=== PATIENT | female | born 1985 | race Caucasian/White ===

== ENCOUNTER 2020-09-08 16:26 | Emergency (ER) | payer OTHER, SELFPAY ==
[2020-09-08 16:38] VITALS: BP 117/75; PULSE 61; RESP 20; TEMP 36.7; O2SAT 100
--- NOTE | 2020-09-08 16:47 | ED.GENADULT ---
HPI - General Adult General Chief complaint: Ear Stated complaint: Ear Infection Time Seen by Provider: 09/08/20 16:48 Source: patient Mode of arrival: ambulatory Limitations: no limitations History of Present Illness HPI narrative: 35-year-old female patient presents to the [facility] with complaints of right ear pain that started today. Patient states that her ear started feeling kind of funny for the past week though. Patient states she has had some runny nose that has been also dry recently. Patient denies any fevers, body aches or chills. Patient denies any coughing, chest pain or shortness of breath. Patient states she had tried taking some Zyrtec as well as some [id number] Flonase for the symptoms. Related Data Home Medications Medication Instructions Recorded Confirmed escitalopram oxalate [Lexapro] 20 mg PO DAILY 06/21/19 09/08/20 alprazolam 0.125 mg PO DAILY PRN 09/08/20 09/08/20 Allergies Allergy/AdvReac Type Severity Reaction Status Date / Time Sulfa (Sulfonamide Allergy Unknown RASH Verified 07/23/19 10:58 Antibiotics) Review of Systems Review of Systems: Narrative: CONSTITUTIONAL: Denies fever, chills, or sweats. EYES: Denies visual changes, redness, or discharge. ENT: Denies rhinorrhea, congestion, sore throat, positive right otalgia. CARDIOVASCULAR: Denies chest pain, palpitations, or edema. RESPIRATORY: Denies cough or dyspnea. GASTROINTESTINAL: Denies abdominal pain, nausea, vomiting, or diarrhea. GENITOURINARY: Denies dysuria or hematuria. SKIN: Denies rash or itching. MUSCULOSKELETAL: Denies back pain, joint pain, or myalgia. NEUROLOGIC: Denies headache, numbness, or weakness. PSYCHIATRIC: Denies anxiety or depression. 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 There is no relevant family history pertinent to the presenting complaint. Exam Narrative: Exam Narrative: GENERAL: Well-appearing, well-nourished, and in no acute distress. HEAD: Normocephalic, atraumatic. EYES: PERRLA and EOMI. ENT: Nares clear but do appear dry, no rhinorrhea or epistaxis. Mucous membranes dry. Posterior pharynx no erythema, tonsillar edema, exudates or lesions present. The right TM does have some erythema with some fluid behind it. NECK: Supple. No lymphadenopathy CHEST: Clear to auscultation. No respiratory distress. HEART: Regular rate and rhythm. No murmur heard. Normal peripheral pulses. ABDOMEN: Soft, nontender, nondistended, normal active bowel sounds. EXTREMITIES: Normal range of motion. No edema. SKIN: Warm, dry, no rash. NEURO: No focal deficits. Alert and oriented x3. Course Vital Signs Vital signs: Vital Signs Temperature 36.7 C 09/08/20 16:38 Pulse Rate 61 09/08/20 16:38 Respiratory Rate 20 09/08/20 16:38 Blood Pressure 117/75 09/08/20 16:38 Pulse Oximetry 100 09/08/20 16:38 Temperature 36.7 C 09/08/20 16:51 Pulse Rate 61 09/08/20 16:51 Respiratory Rate 20 09/08/20 16:51 Blood Pressure 117/75 09/08/20 16:51 Pulse Oximetry 100 09/08/20 16:51 Vital signs reviewed Medical Decision Making Differential Diagnosis Differential Diagnosis: Differential diagnosis: Otitis media, otitis externa, perforated TM, infection of the outer ear, foreign body or cerumen impaction, ruptured TM, acute mastoiditis, ligament otitis externa, dehydration, pneumonia, sepsis, dental or intraoral infection, TMJ dysfunction Discussed with patient it does appear that she may have the start of an ear infection to the right ear. D
[2020-09-08 16:51] VITALS: BP 117/75; PULSE 61; RESP 20; TEMP 36.7; O2SAT 100
== END 2020-09-08 17:00 | disposition home or self-care (01) ==
PROVIDERS: Emergency Provider Nurse Practitioner Family; PCP Family Medicine
DX: H66.91 Otitis media, unspecified, right ear (principal); F41.9 Anxiety disorder, unspecified; F32.9 Major depressive disorder, single episode, unspecified
CPT/HCPCS: 99213; G0463

== ENCOUNTER 2020-12-23 12:05 | Emergency (ER) | payer OTHER, SELFPAY | END 2020-12-23 16:47 | disposition home or self-care (01) | LOC: EXPBETH 16:47 | PROVIDERS: Emergency Provider Nurse Practitioner Family; PCP Family Medicine | DX: H69.91 Unspecified Eustachian tube disorder, right ear (principal); H66.91 Otitis media, unspecified, right ear | CPT/HCPCS: 99213; G0463 ==

== ENCOUNTER 2021-01-27 09:24 | Emergency (ER) | payer OTHER, SELFPAY ==
--- NOTE | ~2021-01-27 | XR_ITS ---
XR foot LT min 3V 01/27/2021 09:52 INDICATION: Left foot pain PROCEDURE: 4 views left foot COMPARISON: No prior studies for comparison. FINDINGS: Fracture, dislocation or subluxation is not identified. The soft tissues appear within norm al limits. No foreign bodies are identified. IMPRESSION: 1: NO ACUTE BONE OR JOINT ABNORMALITY IDENTIFIED. Reviewed, dictated and finalized at location A.
[2021-01-27 09:36] VITALS: BP 109/75; PULSE 62; RESP 16; TEMP 37.1; O2SAT 100
--- NOTE | 2021-01-27 10:02 | ED.LOWEXIN ---
HPI - Extremity Injury (Lower) General Chief Complaint: Extremity Injury, Lower Stated Complaint: Pain in Left Foot Time Seen by Provider: 01/27/21 09:26 Source: patient Mode of arrival: ambulatory Limitations: no limitations History of Present Illness HPI Narrative: 35-year-old female presents to [facility] with complaints of pain to her left foot with ambulation for the past 4 to 5 days. Patient denies injury but reports that she wore flat sandals to an event a few days ago and pain started afterwards. Patient has been taking [id number] Aleve with minimal relief. Patient denies swelling, erythema, bruising, numbness or tingling. Patient reports that she is scheduled to see a wharf worker on Tuesday. Onset (ago): day(s) (5) Injury: Left: foot Relieving factors: NSAID Other symptoms: none Treatments prior to arrival: NSAIDS Related Data Home Medications Medication Instructions Recorded Confirmed alprazolam See Rx Instructions .ROUTE .COMPLEX 01/27/21 01/27/21 cyclobenzaprine 10 mg PO DAILY 01/27/21 01/27/21 escitalopram oxalate 20 mg PO DAILY 01/27/21 01/27/21 Allergies Allergy/AdvReac Type Severity Reaction Status Date / Time Sulfa (Sulfonamide Allergy Rash Verified 01/27/21 10:02 Antibiotics) Review of Systems Constitutional: Constitutional: Denies chills, Denies fatigue, Denies fever(s) and Denies weakness Cardiovascular: Cardiovascular: Denies chest pain, Denies rapid heart rate, Denies radiating jaw, neck or arm pain and Denies slow heart rate Respiratory: Respiratory: Denies chest congestion, Denies cough, Denies dyspnea and Denies wheezing Gastrointestinal: Gastrointestinal: Denies abdominal pain, Denies diarrhea, Denies nausea and Denies vomiting Musculoskeletal: Musculoskeletal: Denies joint swelling Comments: left foot pain Integumentary/Breasts: Skin/Breast: Denies pruritus and Denies rash [facility] Past Medical History Medical History (Updated 01/27/21 @ 10:20 by Niya Jefferson APRN) Right arm fracture Social History Social History (Updated 01/27/21 @ 10:15 by Niya Jefferson APRN) Smoking status: Never smoker Comments At time of signature, I agree with nursing past medical, surgical, social and family history. There is no relevant family history pertinent to the presenting complaint. Exam Const: General: healthy appearing and no acute distress Orientation/consciousness: patient oriented x3 Resp: Effort & Inspection: normal respiratory effort, not labored and not tachypneic Auscultation: clear to auscultation bilaterally Cardio: Rate: regular rate, not bradycardic and not tachycardic Rhythm: regular rhythm and regular rhythm Skin: General skin exam: normal color, no jaundice and no pallor Rashes: no rashes Wounds: no wounds Neuro: General: patient oriented x3, moves all extremities, no meningeal signs and no focal motor deficits Extrem: General: normal to inspection and no pedal edema Other: There is no swelling, erythema or pain to left foot upon palpation. Pulses are within normal limits. Course Vital Signs Vital signs: Vital Signs Temperature 37.1 C 01/27/21 09:36 Pulse Rate 62 01/27/21 09:36 Respiratory Rate 16 01/27/21 09:36 Blood Pressure 109/75 01/27/21 09:36 Pulse Oximetry 100 01/27/21 09:36 Temperature 37.1 C 01/27/21 09:36 Pulse Rate 62 01/27/21 09:36 Respiratory Rate 16 01/27/21 09:36 Blood Pressure 109/75 01/27/21 09:36 Pulse Oximetry 100 01/27/21 09:36 MDM - Extremity Injury (Lower) MDM Narrative Medical decision making narrative: Herminio wrap applied to left foot per windows laptop technician. Patient agrees to keep scheduled appt with wharf worker. patient agrees to take Meloxicam as prescribed. Patient agrees to proceed to the emergency room if symptoms worsen. Differential Diagnosis Differential diagnosis: Likely other (fracture, plantas fascitis, heel spur ) Critical Care Time Critical Care Time Critical Care Time: No
== END 2021-01-27 10:25 | disposition home or self-care (01) ==
PROVIDERS: Emergency Provider Nurse Practitioner Family; PCP Family Medicine
DX: M79.672 Pain in left foot (principal); F41.9 Anxiety disorder, unspecified; F32.9 Major depressive disorder, single episode, unspecified
CPT/HCPCS: 73630; 99213; G0463

== ENCOUNTER 2021-03-04 10:38 | Emergency (ER) | payer OTHER, SELFPAY ==
[2021-03-04 10:45] VITALS: BP 109/59; PULSE 90; RESP 18; TEMP 36.9; O2SAT 99
[2021-03-04 10:55] VITALS: BP 109/59; PULSE 90; RESP 18; TEMP 36.9; O2SAT 99
--- NOTE | 2021-03-04 11:11 | ED.GENADULT ---
HPI - General Adult General Chief complaint: Upper Respiratory Infection Stated complaint: Sore Throat, congestion Time Seen by Provider: 03/04/21 10:56 Source: patient and RN notes reviewed Mode of arrival: ambulatory Limitations: no limitations History of Present Illness HPI narrative: 35-year-old female presents with complaints of upper respiratory infection, some facial congestion, facial pressure, ear pressure, and intermittent headache (not the worst of her life) for the past 2 days. ?Eva reports increasing symptoms over the past 24 hours with fatigue, sore throat, and congestion. Ibuprofen, Tylenol, Sudafed, Flonase, Uma, and Benadryl at night without relief. ?No facial swelling. Intermittent cough without chest congestion. ?Nasal congestion and rhinorrhea. Sore throat. ?Pain is bilateral. ?Hurts to swallow. No high fevers, drooling, neck or throat swelling. No voice change. ?No nausea, vomiting, or abdominal pain. Tolerating liquids well. ?Denies chills, dyspnea, difficulty swallowing, jaw pain, foreign body sensation, and rash. ?No chest pain or shortness of breath. The patient reports she has not been diagnosed with COVID-19. The patient reports she is not waiting for the results of a COVID-19 lab test. The patient reports she does not have weakness or myalgia. The patient reports he does not have a new or worsening cough. The patient reports he does not have any loss of taste or smell and diarrhea. Denies recent traveling. Denies concerns for COVID-19 or exposures. At this time, the patient is not suspected of having COVID-19. ? ? Some parts of this dictation were generated by voice recognition software and may contain typographical and/or grammatical inaccuracies. Related Data Home Medications Medication Instructions Recorded Confirmed escitalopram oxalate [Lexapro] 20 mg PO DAILY 06/21/19 03/04/21 alprazolam 0.125 mg PO DAILY PRN 09/08/20 03/04/21 lisdexamfetamine [Vyvanse] 20 mg PO DAILY 03/04/21 03/04/21 Allergies Allergy/AdvReac Type Severity Reaction Status Date / Time Sulfa (Sulfonamide Allergy Unknown RASH Verified 03/04/21 10:52 Antibiotics) Review of Systems Review of Systems: Narrative: CONSTITUTIONAL: Denies fever, chills, sweats. Complains of fatigue, body aches. EYES: Denies visual changes, redness, discharge. ENT: Complains of rhinorrhea, congestion, facial congestion and pressure, sore throat. Denies otalgia. CARDIOVASCULAR: Denies chest pain, palpitations, edema. RESPIRATORY: Denies dyspnea, wheezing. Complaints of cough. GASTROINTESTINAL: Denies abdominal pain, nausea, vomiting, diarrhea. GENITOURINARY: Denies dysuria, hematuria, abnormal discharge SKIN: Denies rash or itching. MUSCULOSKELETAL: Denies acute back pain, joint pain, or myalgia. NEUROLOGIC: Denies numbness or focal weakness. Complains of intermittent STRATTON. PSYCHIATRIC: Denies anxiety or depression. All other systems reviewed & are unremarkable except as noted in HPI and below. 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 Fractures Right arm Surgical History Surgical History History of orthopedic surgery Fracture right arm Family History Family History (Updated 03/04/21 @ 11:13 by TAM Ramirez) Father Hypertension Obese Mother Alive and well Social History Social History (Updated 03/04/21 @ 11:14 by TAM Ramirez) Smoking status: Never smoker Tobacco type: cigarettes Second hand tobacco smoke exposure: No Alcohol intake: current Substance use: never Substance use type: does not use Living arrangements: with family Occupation/Education: unemployed Gender identity (if verbalized by the patient): Female Sexual Orientation (if Rocio
== END 2021-03-04 11:33 | disposition home or self-care (01) ==
PROVIDERS: Emergency Provider Nurse Practitioner Family
DX: J01.90 Acute sinusitis, unspecified (principal); J02.9 Acute pharyngitis, unspecified; F41.9 Anxiety disorder, unspecified; F32.9 Major depressive disorder, single episode, unspecified; Z90.710 Acquired absence of both cervix and uterus
CPT/HCPCS: 87081; 87880; 99213; G0463

== ENCOUNTER 2021-03-13 18:48 | Emergency (ER) | payer OTHER, SELFPAY ==
[2021-03-13 18:50] VITALS: BP 112/73; PULSE 74; RESP 18; TEMP 37.1; O2SAT 98
--- NOTE | 2021-03-13 19:02 | ED.URI ---
HPI - URI/Sore Throat General Chief Complaint: Upper Respiratory Infection Stated Complaint: Possible sinus infection Time Seen by Provider: 03/13/21 19:01 History of Present Illness HPI Narrative: 35-year-old female presents with concern for continued sinus congestion, pressure, pain, drainage. Reports she was seen here 9 days ago and given a steroid pack and cough medicine. Reports symptoms have not improved, have worsened with sinus pain, ear pressure and pain, thick sinus drainage, general malaise. She reports she finished the steroid pack and has been taking [id number] Sudafed no relief. She denies fever, body aches, chills. Reports occasional cough MD elicited complaint: nasal congestion Related Data Home Medications Medication Instructions Recorded Confirmed escitalopram oxalate [Lexapro] 20 mg PO DAILY 06/21/19 03/13/21 alprazolam 0.125 mg PO DAILY PRN 09/08/20 03/13/21 lisdexamfetamine [Vyvanse] 20 mg PO DAILY 03/04/21 03/13/21 Allergies Allergy/AdvReac Type Severity Reaction Status Date / Time Sulfa (Sulfonamide Allergy Unknown RASH Verified 03/13/21 19:03 Antibiotics) Review of Systems Review of Systems: CONSTITUTIONAL: Denies malaise, chills, sweats, or fever. EYES: Denies visual changes, redness, or discharge. ENT: Reports rhinorrhea, congestion, sinus pain, otalgia. Denies sore throat. CARDIOVASCULAR: Denies chest pain, palpitations, or edema. RESPIRATORY: Reports cough. Denies dyspnea. GASTROINTESTINAL: Denies abdominal pain, nausea, vomiting, diarrhea SKIN: Denies rash or itching. MUSCULOSKELETAL: Denies myalgia. NEUROLOGIC: Denies headache. 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 Fractures Right arm Surgical History Surgical History History of orthopedic surgery Fracture right arm Family History Family History (Updated 03/04/21 @ 11:13 by TAM Ramirez) Father Hypertension Obese Mother Alive and well Social History Social History (Updated 07/21/21 @ 11:14 by HARDEEP Ramirez Smoking status: Never smoker Tobacco type: cigarettes Second hand tobacco smoke exposure: No Alcohol intake: current Substance use: never Substance use type: does not use Gender identity (if verbalized by the patient): Female Exam Narrative: GENERAL: Well-appearing, well-nourished, and in no acute distress. HEAD: Normocephalic EYES: PERRLA, conjunctivae clear ENT: Nares clear, turbinates edematous and erythematous, sinus tenderness. Mucous membranes moist. TM pearly connell with dull light reflex bilaterally; no tragal tenderness. Oropharynx not erythematous without lesions. Tonsils not enlarged and without exudate, no drooling, no hoarseness, no trismus, uvula midline. NECK: Supple. No lymphadenopathy CHEST: Clear to auscultation, breath sounds equal. No wheezing, rhonchi, rales, or stridor. No respiratory distress, speaks in full sentences. HEART: Regular rate and rhythm. No murmur heard. SKIN: Warm, dry, no rash. NEURO: Alert and oriented x3. PSYCH: Normal mood and affect Course Vital Signs Vital signs: Vital Signs Temperature 98.8 F 03/13/21 18:50 Pulse Rate 74 03/13/21 18:50 Respiratory Rate 18 03/13/21 18:50 Blood Pressure 112/73 03/13/21 18:50 Pulse Oximetry 98 03/13/21 18:50 Temperature 98.8 F 03/13/21 18:50 Pulse Rate 74 03/13/21 18:50 Respiratory Rate 18 03/13/21 18:50 Blood Pressure 112/73 03/13/21 18:50 Pulse Oximetry 98 03/13/21 18:50 MDM - URI/Sore Throat MDM Narrative Medical decision making narrative: Differential diagnosis considered: Galvan virus, strep pharyngitis, allergic rhinitis, upper respiratory tract infection, sinusitis, rhinosinusitis, nasopharyngitis. viral
== END 2021-03-13 19:15 | disposition home or self-care (01) ==
PROVIDERS: Emergency Provider Nurse Practitioner
DX: J01.90 Acute sinusitis, unspecified (principal); F41.9 Anxiety disorder, unspecified; F32.9 Major depressive disorder, single episode, unspecified
CPT/HCPCS: 99213; G0463

== ENCOUNTER 2021-07-06 09:02 | Emergency (ER) | payer OTHER, SELFPAY ==
--- NOTE | 2021-07-06 09:07 | ED.URI ---
HPI - URI/Sore Throat General Chief Complaint: Upper Respiratory Infection Stated Complaint: Flu Time Seen by Provider: 07/06/21 09:07 Source: patient and RN notes reviewed History of Present Illness HPI Narrative: Patient is a 36-year-old female who presents the urgent care with complaints of body aches, persistent fevers and chest heaviness. Patient states her symptoms started last Tuesday and she has been taking ibuprofen and Tylenol. 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 Patient typically has a Covid test every Tuesday but missed her test at work considering she was sick. Patient denies of any cough, nausea, vomiting. No other acute complaints. No acute distress noted. Patient read the plan of care. Some parts of this dictation were generated by voice recognition software and may contain typographical and/or grammatical inaccuracies. Related Data Home Medications Medication Instructions Recorded Confirmed alprazolam 0.25 mg PO TID PRN 01/27/21 07/06/21 escitalopram oxalate 20 mg PO DAILY 01/27/21 07/06/21 lisdexamfetamine [Vyvanse] 30 mg PO DAILY 07/06/21 07/06/21 Allergies Allergy/AdvReac Type Severity Reaction Status Date / Time Sulfa (Sulfonamide Allergy Rash Verified 01/27/21 10:02 Antibiotics) Review of Systems Review of Systems: CONSTITUTIONAL: Reports a fever and body aches EYES: Denies visual changes, redness, or discharge. ENT: Denies rhinorrhea, congestion, sore throat, or otalgia. CARDIOVASCULAR: Denies chest pain, palpitations, or edema. RESPIRATORY: Denies cough or dyspnea. Reports of chest heaviness GASTROINTESTINAL: Denies abdominal pain, nausea, vomiting, or diarrhea. GENITOURINARY: Denies dysuria or hematuria. SKIN: Denies rash or itching. MUSCULOSKELETAL: Denies back pain, joint pain NEUROLOGIC: Denies headache, numbness, or weakness. All other systems reviewed are negative, except as documented in HPI. COUNTS INCLUDE 234 BEDS AT THE [facility] Past Medical History Medical History (Updated 07/06/21 @ 09:40 by TAM Wong) Right arm fracture Social History Social History (Updated 01/27/21 @ 10:15 by Niya Jefferson APRN) Smoking status: Never smoker Comments At the time of my signature, I reviewed and agree with the nursing past medical, surgical, social, and family history. There is no relevant family history pertinent to the patient complaint. Exam Narrative: GENERAL: This is a well-nourished, well-developed patient, in no apparent distress. HEAD: normocephalic, atraumatic. EYES: PERRL. Sclera clear/white. Vision is grossly intact. EARS: External ears normal, auditory canals clear and without drainage, TMs normal without perforation. Hearing grossly intact. NOSE: External nose normal with no obvious nasal discharge, nares without redness, no rhinorrhea. THROAT: Mucous membranes moist, posterior pharynx clear. NECK: Neck supple, non-tender without lymphadenopathy, masses or thyromegaly. CARDIOVASCULAR: Regular rate and rhythm without murmurs, gallops, or rubs. RESPIRATORY: Clear to auscultation. Breath sounds equal bilaterally. No wheezes, rales, or rhonchi. GASTROINTESTINAL: Abdomen soft, non-tender, nondistended. Bowel sounds are active. No hepato-splenomegaly, or palpable masses. No guarding. SKIN: warm, intact with no suspicious lesions or rash, good texture and turgor. NEURO: awake, alert, and oriented to person, place and time. There were no obvious focal neurologic abnormalities. EXTREMITIES: No clubbing, cyanosis, or edema. No joint tenderness, effusion, or edema noted. No calf tenderness. Negative Homans sign bilaterally. BACK: Nontender without deformity or crepitance. No flank tenderness. Course Vital Signs Vital signs: Vital Signs Temperature 99.7 F H 07/06/21 09:08 Pulse Rate 77 07/06/21 09:08 Respiratory Rate 14 07/06/21 09:08 Blood Pressure 100/64 07/06/21 09:08 Pulse Oximetry 100 07/06/21 09:08 Temperature 99.7 F H 07/06/21
[2021-07-06 09:08] VITALS: BP 100/64; PULSE 77; RESP 14; TEMP 37.6; O2SAT 100
== END 2021-07-06 09:55 | disposition home or self-care (01) ==
PROVIDERS: Emergency Provider Nurse Practitioner Family; PCP Family Medicine
DX: U07.1 COVID-19 (principal); F41.9 Anxiety disorder, unspecified; F32.A Depression, unspecified; F90.9 Attention-deficit hyperactivity disorder, unspecified type
CPT/HCPCS: 87426; 87804; 99213; C9803; G0463

== ENCOUNTER 2021-12-17 17:20 | Emergency (ER) | payer OTHER, SELFPAY ==
[2021-12-17 17:29] VITALS: BP 120/77; PULSE 66; RESP 16; TEMP 36.6; O2SAT 100
--- NOTE | 2021-12-17 18:01 | ED.URI ---
HPI - URI/Sore Throat General Chief Complaint: Upper Respiratory Infection Stated Complaint: Sore Throat Time Seen by Provider: 12/17/21 18:01 Source: patient and RN notes reviewed Mode of arrival: ambulatory Limitations: no limitations History of Present Illness HPI Narrative: 36-year-old female presented for complaint of right ear pain and sore throat for 2 days. Worse today. States it feels like her right ear is draining, she has not noticed any discharge on Q-tips. Endorses nausea 2 days ago. Denies sinus pressure congestion, headache, fevers or chills. Has not taken anything for symptoms. 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 MD elicited complaint: cough Related Data Home Medications Medication Instructions Recorded Confirmed escitalopram oxalate [Lexapro] 10 mg PO DAILY 06/21/19 12/17/21 alprazolam 0.125 mg PO DAILY PRN 09/08/20 12/17/21 lisdexamfetamine [Vyvanse] 20 mg PO DAILY 03/04/21 12/17/21 Allergies Allergy/AdvReac Type Severity Reaction Status Date / Time Sulfa (Sulfonamide Allergy Unknown RASH Verified 03/13/21 19:03 Antibiotics) Review of Systems Review of Systems: CONSTITUTIONAL: denies malaise, chills, sweats, fever EYES: Denies visual changes, redness, or discharge ENT: Reports ear pain sore throat denies rhinorrhea, congestion, sinus pain, otalgia, CARDIOVASCULAR: Denies chest pain, palpitations, edema RESPIRATORY: Denies dyspnea GASTROINTESTINAL: Denies abdominal pain, nausea, vomiting, diarrhea SKIN: Denies rash or itching MUSCULOSKELETAL: denies myalgia NEUROLOGIC: Denies headache PMFSH Past Medical History Medical History Anxiety Depression Female reproductive system 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, 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 Fractures Right arm Surgical History Surgical History History of orthopedic surgery Fracture right arm Family History Family History Father Hypertension Obese Mother Alive and well Social History Social History Smoking status: Never smoker Tobacco type: cigarettes Second hand tobacco smoke exposure: No Alcohol intake: current Substance use: never Substance use type: does not use Gender identity (if verbalized by the patient): Female Sexual Orientation (if Verbalized by the Patient): Straight or Heterosexual Exam Narrative: GENERAL: Well-appearing HEAD: Normocephalic EYES: conjunctivae clear ENT: Mucous membranes moist. TMs pearly connell with normal light reflex bilaterally, no drainage, no tragal tenderness. Oropharynx erythematous without lesions or exudate, no drooling, no hoarseness, no trismus, uvula midline. No tripod positioning, muffled voice, soft palate or pharyngeal wall bulging NECK: Supple. No lymphadenopathy CHEST: Clear to auscultation, breath sounds equal. No wheezing, rhonchi, rales, or stridor. No respiratory distress, speaks in full sentences. HEART: Regular rate and rhythm. No murmur heard. SKIN: Warm, dry, no rash. NEURO: Alert and oriented x3. PSYCH: Normal mood and affect Course Course Emergency Course: Patient is aware of diagnosis, understands and agrees to treatment plan. Anticipatory guidance given. Patient agrees to follow-up as directed and is aware of reasons to seek care at the emergency department. Portions of this record may have been created with voice recognition software Level of Care: Express Care Visit Vital Signs Vital signs: Vital Signs Temperature 97.8 F 12/17/21 17:29 Pulse Rate 66 12/17/21 17:29 Respiratory Rate 16 12/17/21 17:29 Blood Pressure 120/77 12/17/21 17:29 Pulse Oximetry 100 12/17/21 17:29 Temperature 97.8 F 12/17/21 17:29 Pulse Rate 66 12/17/21 17:29 Respiratory Rate 16 12/17/21
== END 2021-12-17 18:17 | disposition home or self-care (01) ==
PROVIDERS: Emergency Provider Nurse Practitioner Family; PCP Nurse Practitioner Family
DX: H92.01 Otalgia, right ear (principal); F41.9 Anxiety disorder, unspecified; F32.9 Major depressive disorder, single episode, unspecified
CPT/HCPCS: 87081; 87880; 99213; G0463